=== PATIENT | female | born 1975 | race Caucasian/White ===

== ENCOUNTER 2018-03-17 14:26 | Observation (INO) ==
[2018-03-18] MEDS: Sod Chloride 0.9% Inj 1,000 ML IV.CONT SCH ×4 (01:00→23:59)
[2018-03-18] MEDS: Morphine Sulfate Inj 2 MG/ML Vial IV.PUSH PRN ×2 (01:18→20:22)
[2018-03-18 05:47] LABS: Baso # (Auto) 0.1 th/mm3 (0.0-0.2); Eos # (Auto) 0.3 th/mm3 (0.0-0.4); Eos % (Auto) 4.4 % (0.0-4.0); Hematocrit 36.6 % (35.0-46.0); Hemoglobin 11.9 gm/dL (11.6-15.3); Lymph # (Auto) 2.6 th/mm3 (1.0-4.8); Lymph % (Auto) 34.5 % (9.0-44.0); Mean Corpuscular HGB Conc 32.4 % (32.0-36.0); Mean Corpuscular Hemoglobin 27.8 pg (27.0-34.0); Mean Corpuscular Volume 85.8 fL (80.0-100.0); Mean Platelet Volume 9.7 fL (7.0-11.0); Mono # (Auto) 0.5 th/mm3 (0.0-0.9); Mono % (Auto) 6.4 % (0.0-8.0); Neut % (Auto) 53.7 % (16.0-70.0); Platelet Count 200 th/mm3 (150-450); Red Blood Count 4.27 mil/mm3 (4.00-5.30); Red Cell Distribution Width 13.1 % (11.6-17.2); White Blood Count 7.5 th/mm3 (4.0-11.0)
[2018-03-18 05:58] LABS: Chloride 107 meq/L (98-107); Potassium 3.8 meq/L (3.5-5.1); Sodium 139 meq/L (136-145)
[2018-03-18 06:01] LABS: Calcium 7.7 mg/dL (8.5-10.1)
[2018-03-18 06:02] LABS: Anion Gap 8 meq/L (5-15); Blood Urea Nitrogen 6 mg/dL (7-18); Carbon Dioxide 24.3 meq/L (21.0-32.0); Glucose,Random 81 mg/dL (74-106); Lipase 473 U/L (73-393)
[2018-03-18 06:05] LABS: Glomerular Filtration Rate Greater Than 89 mL/min (>89)
--- NOTE | 2018-03-18 08:50 | P.HP ---
History of Present Illness Primary Care Physician: No Primary Care Physician Chief Complaint: Abdominal pain History of Present Illness: 42-year-old female with known history of chronic abdominal discomfort with gastritis who presented to the hospital because acute onset abdominal pain. Patient indicates that she has had a chronic problem with bloating, abdominal pain, gastritis. She is been evaluated multiple times with primary medical doctor, sanitation worker cleaning machinery. States that her last endoscopy was 2-3 years ago and they did not find anything acutely abnormal at that time. Patient states that she is tried multiple different treatments to include different diets, avoiding certain foods. However she never get her pain and discomfort controlled. Patient states that she is in her normal state of health until approximately 1 AM yesterday morning when she woke up with acute abdominal pain on the right side that radiated to the right flank. She was nauseous but did not have any vomiting. Patient states that the pain did not improve. She did have a bowel movement yesterday morning without any improvement of her pain. Because the pain did not improve she went to the emergency department for evaluation. Patient had workup done with radiological studies of liver ultrasound, CT the abdomen which did not indicate any acute abnormality. Laboratory studies did indicate elevated lipase level. Patient was recommended to be observed in the hospital for further evaluation. At the time of seeing the patient her pain is much improved. Lipase level is almost returned to normal. Patient does appear to quite frustrated about her clinical condition and cannot find a reason for her symptoms. Patient denied any fever, chills, vomiting, diarrhea, constipation - Diagnosis (1) Serum lipase elevation (2) Abdominal pain Review of Systems All other systems reviewed negative except as stated in HPI Gastrointestinal: Reports abdominal pain, Reports nausea PMFSH - History History Provided By: Patient - Medical History Medical History: Medical History (Last Reviewed 03/18/18 @ 08:34 by KIMBERLY Tello) Asthma Gastritis - Surgical History Surgical History: Surgical History (Last Reviewed 03/18/18 @ 08:34 by KIMBERLY Tello) History of abdominoplasty History of breast augmentation - Family History Family History: Family History (Last Updated 03/18/18 @ 08:34 by KIMBERLY Tello) Father History of diabetes mellitus History of hypertension - Tobacco History Second Hand Smoke Exposure: No Smoking Status: Former smoker Number of Pack Years (if former smoker): 4 - Alcohol History How Often Do You Have a Drink Containing Alcohol: Monthly or less - Substance Use History Substance History: No History of Abuse Medications and Allergies Active Medications: Active Medications Sodium Chloride (Ns Inj) 1,000 mls @ 125 mls/hr IV.CONT .Q8H [facility] Last Admin: 03/18/18 08:01 Dose: Not Given Morphine Sulfate (Morphine Inj) 2 mg IV.PUSH Q3H PRN PRN Reason: ABDOMINAL PAIN Last Admin: 03/18/18 01:18 Dose: 2 mg Ondansetron HCl (Zofran Inj) 4 mg IV.PUSH Q6H PRN PRN Reason: NAUSEA OR VOMITING Last Admin: 03/18/18 01:24 Dose: 4 mg Allergies Allergy/AdvReac Type Severity Reaction Status Date / Time No Known Allergies Allergy Verified 03/17/18 14:44 Home Medications Medication Instructions Recorded Confirmed Type albuterol sulfate [Ventolin HFA] 2 puff INHALATION Q4-6H PRN 03/17/18 03/18/18 History Exam Vital signs: Vital Signs 03/18/18 00:00 03/18/18 08:25 Temperature 96.7 F L 97.7 F Pulse Rate 67 87 Respiratory Rate 20 20 Blood Pressure 122/64 111/60 Pulse Oximetry 99 95 Intake & Output 03/17/18 03/18/18 03/18/18 18:59 06:59 18:59 Intake Total 0 / 0 172 / 172 Balance 0 / 0 172 / 172 Weight 84.7 kg Intake: IV 172 / 172 NS Inj 1,000 ML @ 125 mls/hr IV 172 / 172 .CONT .Q8H [facility] Rx#:[id number] Oral 0 / 0 0 / 0 Other: # Voids 2 Weight On Admission 84.5 kg Narrative: GENERAL: Well-developed, well-nourished, in no acute distress. alert and orientated HEENT: Head is normocephalic without any lesions or masses noted. Facial features are symmetric. Eyes: Pupils equal round reactive to light. Extraocular muscles are intact. Conjunctivae were clear. Oropharyngeal: Pharynx without any erythema edema. Tongue is midline without deviation. Buccal mucosa is moist without any masses or lesions NECK: Supple without any masses. Trachea midline no deviation. No JVD, no bruits are appreciated CARDIAC: Regular rhythm, regular rate. S1/S2 are heard. No murmurs gallops or rubs. LUNGS: Clear to auscultation bilaterally. No wheeze, rhonchi or rales. No use of accessory muscles on inspiration or expiration. ABDOMEN: Soft, nontender. Nondistended. Bowel sounds heard in all 4 quadrants. No organomegaly or masses. Negative rebound, negative guarding EXTREMITIES: No edema, pulses are equal bilaterally. No cyanosis or clubbing NEUROLOGY: Mood and affect appear appropriate. Cranial nerves II through XII grossly intact. Muscle strength 5/5 in upper and lower extremities bilaterally. Deep tendon reflexes are 2+ in upper and lower extremities bilaterally. Results - Labs CBC & Chem 7: 03/18/18 04:30 03/18/18 04:30 Labs: Laboratory Results - last 24 hr 03/18/18 03/18/18 04:30 04:30 CBC w Diff Auto diff final WBC 7.5 RBC 4.27 Hgb 11.9 Hct 36.6 MCV 85.8 MCH 27.8 MCHC 32.4 RDW 13.1 Plt Count 200 MPV 9.7 Neut % (Auto) 53.7 Lymph % (Auto) 34.5 Ralls % (Auto) 6.4 Eos % (Auto) 4.4 H Baso % (Auto) 1.0 Neut # (Auto) 4.0 Lymph # (Auto) 2.6 Ralls # (Auto) 0.5 Eos # (Auto) 0.3 Baso # (Auto) 0.1 WBC Differential . Differential Comment . Sodium 139 Potassium 3.8 Chloride 107 Carbon Dioxide 24.3 Anion Gap 8 BUN 6 L Creatinine 0.71 Estimated GFR Greater than 89 Random Glucose 81 Calcium 7.7 L Lipase 473 H Caprini VTE Risk Assessment Caprini VTE Risk Assessment: No/Low Risk (score <= 1) Caprini Risk Assessment Model: Point Value = 1 Point Value = 2 Point Value = 3 Point Value = 5 Age 41-60 Minor surgery BMI > 25 kg/m2 Swollen legs Varicose veins or History of unexplained or recurrent spontaneous Oral contraceptives or hormone replacement Sepsis (< 1 month) Serious lung disease, including pneumonia (< 1 month) Abnormal pulmonary function Acute myocardial infarction Congestive heart failure (< 1 month) History of inflammatory bowel disease Medical patient at bed rest Age 61-74 Arthroscopic surgery Major open surgery (> 45 min) Laparoscopic surgery (> 45 min) Malignancy Confined to bed (> 72 hours) Immobilizing plaster cast Central venous access Age >= 75 History of VTE Family history of VTE Factor V Leiden Prothrombin [id number] Lupus anticoagulant Anticardiolipin antibodies Elevated serum homocysteine Heparin-induced thrombocytopenia Other congenital or acquired thrombophilia Stroke (< 1 month) Elective arthroplasty Hip, pelvis, or leg fracture Acute spinal cord injury (< 1 month) Prophylaxis Regimen: Total Risk Factor Score Risk Level Prophylaxis Regimen 0-1 Low Early ambulation 2 Moderate Order ONE of the following: *Sequential Compression Device (SCD) *Heparin 5000 units SQ BID 3-4 Higher Order ONE of the following medications: *Heparin 5000 units SQ TID *Enoxaparin/Lovenox 40 mg SQ daily (WT < 150 kg, CrCl > 30 mL/min) *Enoxaparin/Lovenox 30 mg SQ daily (WT < 150 kg, CrCl > 10-29 mL/min) *Enoxaparin/Lovenox 30 mg SQ BID (WT < 150 kg, CrCl > 30 mL/min) AND/OR *Sequential Compression Device (SCD) 5 or more Highest Order ONE of the following medications: *Heparin 5000 units SQ TID (Preferred with Epidurals) *Enoxaparin/Lovenox 40 mg SQ daily (WT < 150 kg, CrCl > 30 mL/min) *Enoxaparin/Lovenox 30 mg SQ daily (WT < 150 kg, CrCl > 10-29 mL/min) *Enoxaparin/Lovenox 30 mg SQ BID (WT < 150 kg, CrCl > 30 mL/min) AND *Sequential Compression Device (SCD) Assessment and Plan - Assessment (1) Serum lipase elevation Code(s): R74.8 - Abnormal levels of other serum enzymes Status: Acute (2) Abdominal pain Code(s): R10.9 - Unspecified abdominal pain Status: Acute - Plan Abdominal pain with elevated lipase; possible early pancreatitis -CT scan and liver ultrasound did not indicate any acute abnormality, no pancreatic abnormality -Lipase levels are already returning to normal -Start clear liquid diet -Continue IV fluids, pain control DVT prevention -Sequential compression devices Discussed Condition With: Patient Discharge Planning: Discharge home in stable condition Activity: Ad crissy. Diet: Regular diet Medication per medication reconciliation Follow-up with primary medical doctor in 1 week
[2018-03-19] MEDS: Sod Chloride 0.9% Inj 1,000 ML IV.CONT SCH ×2 (07:10→15:54)
[2018-03-19] MEDS: Morphine Sulfate Inj 2 MG/ML Vial IV.PUSH PRN (08:23)
--- NOTE | 2018-03-19 09:04 | P.PN ---
Subjective Interval history: 42-year-old female who was seen and examined today for follow-up of pancreatitis. Patient continues have chronic abdominal pain. She has not been able to tolerate any diet since last night. She is requiring pain medication at this time. Her lipase level has returned to normal, unlikely that it is related to pancreatitis. Patient will need further evaluation and management. Vital signs are stable, patient remains afebrile Physical Exam Vital signs: Vital Signs 03/18/18 12:00 03/18/18 16:08 03/18/18 20:00 Temperature 98.4 F 98.9 F 98.7 F Pulse Rate 90 75 72 Respiratory Rate 19 19 20 Blood Pressure 128/67 143/67 H 112/64 Pulse Oximetry 97 97 99 03/19/18 00:00 03/19/18 08:43 Temperature 97.3 F L 98.2 F Pulse Rate 65 81 Respiratory Rate 16 14 Blood Pressure 106/66 118/69 Pulse Oximetry 98 98 Intake & Output 03/18/18 03/19/18 03/19/18 18:59 06:59 18:59 Intake Total 1480 / 1480 1200 / 1200 1000 / 1000 Output Total 1301 / 1301 Balance 179 / 179 1200 / 1200 1000 / 1000 Intake: IV 1000 / 1000 1000 / 1000 1000 / 1000 NS Inj 1,000 ML @ 125 mls/hr IV 1000 / 1000 1000 / 1000 1000 / 1000 .CONT .Q8H [facility] Rx#:[id number] Oral 480 / 480 200 / 200 Output: Urine 1300 / 1300 Stool Other: # Voids 4 Date of Last Bowel Movement 03/18/18 03/18/18 Narrative: GENERAL: Well-developed, well-nourished, in no acute distress. alert and orientated HEENT: Head is normocephalic without any lesions or masses noted. Facial features are symmetric. Eyes: Extraocular muscles are intact. Conjunctivae were clear. NECK: Supple without any masses. Trachea midline no deviation. No JVD, CARDIAC: Regular rhythm, regular rate. S1/S2 are heard. No murmurs gallops or rubs. LUNGS: Clear to auscultation bilaterally. No wheeze, rhonchi or rales. No use of accessory muscles on inspiration or expiration. ABDOMEN: Soft, right upper quadrant tenderness radiating into the right flank. Nondistended. Bowel sounds heard in all 4 quadrants. No organomegaly or masses. Negative rebound, negative guarding EXTREMITIES: No edema, pulses are equal bilaterally. No cyanosis or clubbing NEUROLOGY: Mood and affect appear appropriate. Cranial nerves II through XII grossly intact. Moving all extremities, speech is clear Results - Labs CBC & Chem 7: 03/18/18 04:30 03/18/18 04:30 Laboratory Results - last 24 hr 03/18/18 03/18/18 03/19/18 04:30 14:42 06:12 Triglycerides 49 Lipase 731 H 226 Assessment and Plan - Assessment (1) Serum lipase elevation Code(s): R74.8 - Abnormal levels of other serum enzymes Status: Acute (2) Abdominal pain Code(s): R10.9 - Unspecified abdominal pain Status: Acute - Plan Abdominal pain with elevated lipase -Patient indicate that the pain is actually worse, she has not been able tolerate liquid diet, continues to be nauseous without any vomiting. Patient requiring IV pain medication for control -CT scan and liver ultrasound did not indicate any acute abnormality, no pancreatic abnormality -Obtain CT of the abdomen and pelvis with IV contrast, will need to evaluate for other etiology that could be causing the patient's abdominal pain. Need to rule out mesenteric ischemia, -lipase levels have returned to normal -Continue IV fluids, pain control -Consult GI for further recommendations, likely require endoscopy for further evaluation -We will continue clear liquid diet at this time and make n.p.o. after midnight in preparation for EGD DVT prevention -Sequential compression devices
[2018-03-19] MEDS ORDERED: Diatrizoate Meglum/Diatrizoate Sod Liq 9 ML UDC PO ONE (10:03)
--- NOTE | 2018-03-19 13:52 | CT ---
EXAM DATE: 03/19/2018 1:41 PM EDT AGE/SEX: 42 years / Female INDICATIONS: Right abdominal pain. CLINICAL DATA: This is the patient's initial encounter. Patient reports that signs and symptoms have been present for 4 - 6 days and indicates a pain score of 2/10. MEDICAL/SURGICAL HISTORY: Pancreatitis. Asthma. Gastritis. . Abdominoplasty. ORAL CONTRAST: Prescribed oral contrast ingested. RADIATION DOSE: 17.19 CTDI (mGy) COMPARISON: [facility], CT ABDOMEN & PELVIS W/O CONTRAST, 03/17/2018. . TECHNIQUE: Multiple contiguous axial images were obtained through the abdomen and pelvis following b olus infusion of 95 ml Omnipaque 350 (iohexol) nonionic water-soluble contrast as a single exam dos e. Prescribed oral contrast ingested. Using automated exposure control and adjustment of the mA and/ or kV according to patient size, radiation dose was kept as low as reasonably achievable to obtain op timal diagnostic quality images. DICOM format image data is available electronically for review and comparison. FINDINGS: LOWER LUNGS: The visualized lower lungs are clear. LIVER: The liver has a homogeneous density without space-occupying lesion. There is no dilation of t he biliary tree. SPLEEN: Homogeneous density without enlargement. PANCREAS: Unremarkable without mass or calcification. KIDNEYS: Kidneys demonstrate symmetrical enhancement and are symmetrical in size without evidence fo r radiopaque renal calculi or hydronephrosis. ADRENAL GLANDS: Unremarkable. AORTA: Renée-aneurysmal. BOWEL/MESENTERY: Appendix is visualized. Appendix is normal in size. However, there is subtle periap pendiceal mesenteric stranding. There is a single 5 mm periappendiceal node. Bowel otherwise appears unremarkable. The cecum and sigmoid colon have a normal configuration. ABDOMINAL WALL: Intact. RETROPERITONEUM: No evidence of adenopathy in the retrocrural, para-aortic, or deep pelvic regions. BLADDER: Contours are smooth. REPRODUCTIVE: Redemonstration of a 2.6 cm left ovarian cyst. Very trace abnormal pelvic free fluid. BONY STRUCTURES: Unremarkable. CONCLUSION: 1. Although the appendix is normal in size, there is subtle periappendiceal mesenteric stranding new since CT exam of 03/17/2018. Cannot exclude very acute developing appendicitis in the appropriate cli nical setting. 2. Stable 2.6 cm left ovarian cyst. Electronically signed by: Timoteo Soto MD 03/19/2018 1:50 PM EDT
[2018-03-19 14:09] LABS: Bilirubin,Urine Negative (Negative); Clarity,Urine Clear (Clear); Color,Urine Straw (Yellw/Straw); Glucose,Urine (UA) Negative (Negative); Leukocyte Esterase,Urine Trace (Negative); Nitrite,Urine Negative (Negative); Specific Gravity,Urine Less/Equal 1.005 (1.002-1.035)
[2018-03-19 14:16] LABS: Squamous Epithelial Cell,Urine 0-5 /hpf (0-5); WBC,Urine 0-5 /hpf (0-5)
[2018-03-19] MEDS: Ampicillin/Sulbactam Inj 3 GM in Sodium Chloride 0.9% Inj 100 ML IV.SIG SCH ×2 (15:48→22:30)
[2018-03-19 20:15] VITALS: RESP 16
--- NOTE | 2018-03-19 20:24 | P.CONGS ---
[facility] Gen Surgery Consult Note Consult date: 03/19/18 Reason for consult: abdominal pain Narrative: Patient was recently admitted to the hospital after she went to the [facility] to ER and was found to have an elevated lipase consistent with pancreatitis. She again got admitted to the [facility] a repeat CT scan showed questionable early appendicitis although the appendix looked normal Surgery is asked to evaluate the patient and reviewed the radiologic imaging The patient states her pain started in the right upper quadrant pain extending into the back after eating a philistine state the pain came on suddenly made her nauseous. She feels better now is very hungry. Review of Systems Cardiovascular: Denies chest pain, Denies chest pain at rest, Denies chest pain with activity, Denies excessive sweating, Denies fainting, Denies fast heart rate, Denies foot swelling, Denies generalized swelling, Denies irregular heart rhythm, Denies leg pain with activity, Denies leg sores, Denies leg swelling, Denies lightheadedness, Denies radiating jaw, neck or arm pain, Denies rapid, pounding, or irregular heartbeat, Denies shortness of breath, Denies shortness of breath with activity, Denies shortness of breath when lying down, Denies shortness of breath causing sudden awakening, Denies slow heart rate, Denies other Respiratory: Denies change in phlegm color, Denies chest congestion, Denies cough, Denies coughing up blood, Denies excessive phlegm production, Denies pain on inspiration, Denies pain with cough, Denies shortness of breath, Denies shortness of breath with activity, Denies snoring, Denies stridor, Denies wheezing, Denies other Gastrointestinal: Reports abdominal pain, Reports cramping, Reports heartburn, Reports nausea, Denies belching, Denies black, tarry stools, Denies bloating, Denies bright, red blood in stools, Denies change in bowel habits, Denies constant urge to pass stool, Denies change in stools, Denies coffee ground vomit , Denies constipation, Denies difficulty swallowing, Denies excessive passing of gas, Denies feeling full early, Denies incontinent of stools, Denies loose stools, Denies pain with swallowing, Denies vomiting, Denies vomiting blood, Denies other Genitourinary: Denies abnormal periods, Denies abnormal vaginal bleeding, Denies absent period, Denies bleeding between periods, Denies blood in urine, Denies difficulty starting urination, Denies difficulty urinating, Denies dribbling after urination, Denies frequent nighttime urination, Denies genital itching, Denies genital lesions, Denies heavy periods, Denies hot flashes, Denies light periods, Denies nipple discharge, Denies painful intercourse, Denies painful periods, Denies painful urination, Denies pelvic pain, Denies prolapse symptoms, Denies sexual problems, Denies side pain, Denies urinary incontinence, Denies urinary urgency, Denies vaginal discharge, Denies vaginal dryness, Denies vaginal odor, Denies vaginal itching, Denies other Musculoskeletal: Denies abnormal walking, Denies back pain, Denies body aches, Denies decreased muscle mass, Denies deformity, Denies joint pain, Denies joint swelling, Denies limited joint movement, Denies loss of height, Denies muscle cramps, Denies muscle weakness, Denies neck pain, Denies numbness, Denies radiating pain into limb, Denies stiffness, Denies tingling, Denies other PMFSH - History History Provided By: Patient - Medical History Medical History: Medical History (Last Reviewed 03/19/18 @ 20:19 by Trevon Angelo MD) Asthma Gastritis - Surgical History Surgical History: Surgical History (Last Reviewed 03/19/18 @ 20:19 by Trevon Angelo MD) History of abdominoplasty History of breast augmentation - Family History Family History: Family History (Last Reviewed 03/19/18 @ 20:19 by Trevon Angelo MD) Father History of diabetes mellitus History of hypertension - Tobacco History Second Hand Smoke Exposure: No Smoking Status: Former smoker Number of Pack Years (if former smoker): 4 - Alcohol History How Often Do You Have a Drink Containing Alcohol: Monthly or less - Substance Use History Substance History: No History of Abuse Medications and Allergies Active Medications: Active Medications Sodium Chloride (Ns Inj) 1,000 mls @ 125 mls/hr IV.CONT .Q8H [facility] Last Admin: 03/19/18 15:54 Dose: 100 mls/hr Ampicillin Sodium/Sulbactam (Sodium 3 gm/ Sodium Chloride) 100 mls @ 200 mls/ hr IV.SIG Q6H [facility] Last Infusion: 03/19/18 16:35 Dose: Infused Morphine Sulfate (Morphine Inj) 2 mg IV.PUSH Q3H PRN PRN Reason: ABDOMINAL PAIN Last Admin: 03/19/18 08:23 Dose: 2 mg Ondansetron HCl (Zofran Inj) 4 mg IV.PUSH Q6H PRN PRN Reason: NAUSEA OR VOMITING Last Admin: 03/19/18 08:28 Dose: 4 mg Allergies Allergy/AdvReac Type Severity Reaction Status Date / Time No Known Allergies Allergy Verified 03/17/18 14:44 Home Medications Medication Instructions Recorded Confirmed Type albuterol sulfate [Ventolin HFA] 2 puff INHALATION Q4-6H PRN 03/17/18 03/18/18 History Exam Vital signs: Vital Signs 03/19/18 00:00 03/19/18 08:43 03/19/18 14:02 Temperature 97.3 F L 98.2 F 97.0 F L Pulse Rate 65 81 70 Respiratory Rate 16 14 16 Blood Pressure 106/66 118/69 124/70 Pulse Oximetry 98 98 98 03/19/18 18:02 03/19/18 20:00 Temperature 97.7 F 97.0 F L Pulse Rate 78 73 Respiratory Rate 18 16 Blood Pressure 135/89 128/70 Pulse Oximetry 99 95 Intake & Output 03/19/18 03/19/18 03/20/18 06:59 18:59 06:59 Intake Total 1200 / 1200 2100 / 2100 Balance 1200 / 1200 2100 / 2100 Intake: IV 1000 / 1000 2100 / 2100 NS Inj 1,000 ML @ 125 mls/hr IV 1000 / 1000 2000 / 1999 .CONT .Q8H [facility] Rx#:[id number] Unasyn Inj 3 GM In NS Inj 100 100 / 100 ML @ 200 mls/hr IV.SIG Q6H [facility] Rx#:[id number] Oral 200 / 200 Other: # Voids 4 Date of Last Bowel Movement 03/18/18 03/19/18 # Bowel Movements 1 - Constitutional no acute distress - Routine HEENT Exam Head: Present: normocephalic, atraumatic Eye: Present: EOMI ENT: Present: mucous membranes moist - Routine Neck Exam Present: supple, full ROM - Routine Respiratory Exam Present: CTA bilaterally - Routine Cardiovascular Exam Present: RRR - Routine Abdominal Exam Present: soft, surgical scars (Abdominoplasty) Comments: Mild discomfort right upper quadrant with deep palpation No tenderness in the right lower quadrant or left lower quadrant - Routine Extremities Exam Present: full ROM (Walking in the room) - Routine Skin Exam Present: intact - Routine Neurological Exam Present: alert, oriented X3 Results - Labs 03/18/18 04:30 03/18/18 04:30 Abnormal lab results 03/19/18 Range/Units 13:30 Ur Leukocyte Esterase Trace H (Negative) All other labs normal. - Imaging CT scan - abdomen: report reviewed, image reviewed CT scan - pelvis: report reviewed, image reviewed US - abdomen: report reviewed, image reviewed Assessment and Plan - Assessment (1) Right upper quadrant pain Code(s): R10.11 - Right upper quadrant pain Status: Acute (2) Fatty food intolerance Code(s): K90.49 - Malabsorption due to intolerance, not elsewhere classified Status: Acute (3) Serum lipase elevation Code(s): R74.8 - Abnormal levels of other serum enzymes Status: Acute - Plan 42-year-old female who had a sudden onset of right upper quadrant pain nausea she has a history of gastritis. She had an elevated lipase ultrasound was done did not show any stones. However her clinical history with having a cheese steak and then having this pain is consistent with biliary colic I suspect she may passed a small stone giving her pancreatitis that has somewhat resolved. The clinical picture is not consistent with appendicitis and does not correlate to the radiologic interpretation of the appendix. She does have a cyst on the left ovary she may have one on the right. At this time I would advance her diet. Obtain a HIDA scan Anticipate discharge tomorrow follow-up in my office 7 day course of antibiotic therapy I will discuss with her on an outpatient basis about possible cholecystectomy She may need a repeat EGD to evaluate recurrent gastritis NOTE FOR SURGICAL ATTENDING, DR. TREVON ANGELO I attest that I had a [id number] encounter with the patient on the same day, and personally performed and documented my assessment and findings in the medical record. The following services were provided during this hospital visit: Chart data review, vital sign assessments/reviewing monitor data Review of consultations notes if present. Medication orders/review and/or management Ordering and/or reviewing lab tests Ordering and/or interpreting/reviewing x-rays and/or diagnostic studies Care of the patient and discussion of the patient with the care team Documentation time To help prompt me to consider important information that might be impacting today's encounter and assessment, Information from prior notes written by myself or my colleagues may have been "brought forward/copy and pasted" into today's note.
[2018-03-20] MEDS: Sod Chloride 0.9% Inj 1,000 ML IV.CONT SCH ×2 (00:58→08:54)
[2018-03-20] MEDS: Ampicillin/Sulbactam Inj 3 GM in Sodium Chloride 0.9% Inj 100 ML IV.SIG SCH ×2 (06:30→12:34)
[2018-03-20 09:05] VITALS: O2SAT 98
[2018-03-20] MEDS ORDERED: Sincalide Inj 5 MCG Vial IV.PUSH ONE (11:54)
--- NOTE | 2018-03-20 12:51 | NM ---
EXAM DATE: 03/20/2018 12:43 PM EDT AGE/SEX: 42 years / Female INDICATIONS: Right upper quadrant pain for one day. CLINICAL DATA: This is the patient's initial encounter. Patient reports that signs and symptoms have been present for 1 day and indicates a pain score of 8/10. MEDICAL/SURGICAL HISTORY: . Asthma. Breast augmentation. COMPARISON: No prior exams available for comparison. No external comparison. DOSE: 4.1 mCi Tc-99m mebrofenin i.v. Medication: 1.68 mcg Cholecystokinin IV No symptomatic response Cholecystokinin was administered by slow infusion over 8 minutes beginning at 60 min. min utes. TECHNIQUE: Following the intravenous administration of radiotracer, dynamic sequential images were pe rformed with continuous acquisition. Time-activity curves were generated. FINDINGS: Hepatic Kinetics: There is prompt uptake of radiotracer in the liver. No focal defects are seen. Ther e is normal rate of washout from the hepatic parenchyma. Biliary Clearance: Activity is first seen in the extrahepatic biliary system at 10 minutes. There is normal excretion into the small bowel. Gallbladder: Activity is first seen in the gallbladder at 15 minutes. Post-CCK: After CCK administration, there is no significant emptying of the gallbladder. Common bile duct kinetics are normal and there is no evidence of biliary obstruction. No symptomatic response af ter cholecystokinin infusion. Biliary-Enteric Reflux: There is minimal activity seen replacing in the stomach during the examinatio n. CONCLUSION: 1. No sign of obstruction. 2. No significant response of the gallbladder to CCK protrusion. Electronically signed by: Colton Preston MD 03/20/2018 12:49 PM EDT
--- NOTE | 2018-03-20 14:04 | P.DS ---
Date of admission: 03/17/18 22:55 Primary care physician: No Primary Care Physician Attending physician on discharge: Joel Greene Anticipated date of discharge: 03/20/18 Brief History from admission: 42-year-old female with known history of chronic abdominal discomfort with gastritis who presented to the hospital because acute onset abdominal pain. Patient indicates that she has had a chronic problem with bloating, abdominal pain, gastritis. She is been evaluated multiple times with primary medical doctor, pepper picker. States that her last endoscopy was 2-3 years ago and they did not find anything acutely abnormal at that time. Patient states that she is tried multiple different treatments to include different diets, avoiding certain foods. However she never get her pain and discomfort controlled. Patient states that she is in her normal state of health until approximately 1 AM yesterday morning when she woke up with acute abdominal pain on the right side that radiated to the right flank. She was nauseous but did not have any vomiting. Patient states that the pain did not improve. She did have a bowel movement yesterday morning without any improvement of her pain. Because the pain did not improve she went to the emergency department for evaluation. Patient had workup done with radiological studies of liver ultrasound, CT the abdomen which did not indicate any acute abnormality. Laboratory studies did indicate elevated lipase level. Patient was recommended to be observed in the hospital for further evaluation. At the time of seeing the patient her pain is much improved. Lipase level is almost returned to normal. Patient does appear to quite frustrated about her clinical condition and cannot find a reason for her symptoms. Patient denied any fever, chills, vomiting, diarrhea, constipation DS: Diagnosis - Discharge Diagnosis (1) Serum lipase elevation Status: Acute (2) Abdominal pain Status: Acute DS: Medications - Discharge Medications Prescriptions: pantoprazole [Protonix] 40 mg PO DAILY #30 tab DS: Summary Hospital Course: 42-year-old female who originally presented the hospital because of acute onset abdominal pain. Patient was found to have an elevated lipase level was admitted the hospital for acute pancreatitis. CT scan was done at that time which did not indicate any pancreatic abnormality or liver abnormality. Ultrasound was performed which did not indicate any acute abnormality. Patient was admitted to the hospital with IV fluids, pain control, n.p.o. Patient tolerated quite well within the first 24 hours she is doing good. However lipase level did come down however did not resolve completely. Patient was continued on treatment plan, started with clear liquid diet. Throughout the next night she started developing worsening pain, requiring pain medication. Upon evaluating patient morning she was not tolerating any diet. Requiring pain medicine. Follow-up CT scan was performed which radiologist now indicating there may be some development of some early pancreatitis. [employer] and general surgeon was consulted. General surgery evaluated patient does not feel the patient is having an acute appendicitis. He indicates that patient may have passed a gallstone and requested HIDA scan to be performed. HIDA scan was done which was completely normal. Case was discussed with them who indicate that the patient can follow-up with them in outpatient setting after they are evaluated by GI. Patient has not seen gastroenterology while hospitalized this time. Family member and patient would much rather see a pepper picker in their area of residence. They do not want to wait around for pepper picker to see them. They do want to go home. A follow-up with her primary call doctor and get a pepper picker referral. Patient clinically stable this time. She is tolerating food without any adverse symptoms. We will plan discharge accordingly. - Time Spent with Patient Total time spent providing and/or coordinating discharge services: Greater than 30 minutes - Quality: VTE Deep Vein Thrombosis/Pulmonary Embolism Present on Admission: No Exam Vital signs: Vital Signs 03/19/18 14:02 03/19/18 18:02 03/19/18 20:00 Temperature 97.0 F L 97.7 F 97.0 F L Pulse Rate 70 78 73 Respiratory Rate 16 18 16 Blood Pressure 124/70 135/89 128/70 Pulse Oximetry 98 99 95 03/20/18 00:00 03/20/18 08:00 03/20/18 12:41 Temperature 98.3 F 97.5 F L 98 F Pulse Rate 72 83 70 Respiratory Rate 16 16 16 Blood Pressure 110/66 110/69 121/85 Pulse Oximetry 99 98 Intake & Output 03/19/18 03/20/18 03/20/18 18:59 06:59 18:59 Intake Total 2099 / 2099 1100 / 1100 1200 / 1200 Balance 2100 / 2100 1100 / 1100 1200 / 1200 Weight 85.9 kg Intake: IV 2099 / 2100 1100 / 1100 1200 / 1200 NS Inj 1,000 ML @ 125 mls/hr IV 2000 / 2000 1000 / 1000 1000 / 1000 .CONT .Q8H [facility]ER[facility] Rx#:[id number] Unasyn Inj 3 GM In NS Inj 100 100 / 100 100 / 100 200 / 200 ML @ 200 mls/hr IV.SIG Q6H BRODERICK Rx#:[id number] Other: # Voids 1 Date of Last Bowel Movement 03/19/18 # Bowel Movements 1 Narrative: GENERAL: Well-developed, well-nourished, in no acute distress. alert and orientated HEENT: Head is normocephalic without any lesions or masses noted. Facial features are symmetric. Eyes: Extraocular muscles are intact. Conjunctivae were clear. NECK: Supple without any masses. Trachea midline no deviation. No JVD, CARDIAC: Regular rhythm, regular rate. S1/S2 are heard. No murmurs gallops or rubs. LUNGS: Clear to auscultation bilaterally. No wheeze, rhonchi or rales. No use of accessory muscles on inspiration or expiration. ABDOMEN: Soft, nontender. Nondistended. Bowel sounds heard in all 4 quadrants. No organomegaly or masses. Negative rebound, negative guarding EXTREMITIES: No edema, pulses are equal bilaterally. No cyanosis or clubbing NEUROLOGY: Mood and affect appear appropriate. Cranial nerves II through XII grossly intact. Moving all extremities Results Procedures completed during hospitalization: None Labs on day of discharge: Labs from last 24 hours 03/19/18 13:30 Ur Collection Type Clean catch Urine Color Straw Urine Clarity Clear Urine pH 7.0 Ur Specific [place] Less/equal 1.005 Urine Protein Negative Urine Glucose (UA) Negative Urine Ketones Negative Urine Occult Blood Negative Urine Nitrate Negative Urine Bilirubin Negative Urine Urobilinogen 1.0 Ur Leukocyte Esterase Trace H Urine WBC 0-5 Ur Squamous Epith Cells 0-5 Micro UA Comment Culture not ind Urine Culture Comments Culture not ind - Impressions ITS Impressions Abdomen/Pelvis CT 03/19/18 08:56 CONCLUSION: 1. Although the appendix is normal in size, there is subtle periappendiceal mesenteric stranding new since CT exam of 03/17/2018. Cannot exclude very acute developing appendicitis in the appropriate clinical setting. 2. Stable 2.6 cm left ovarian cyst. Bile Acid Absorption NM 03/20/18 06:00 CONCLUSION: 1. No sign of obstruction. 2. No significant response of the gallbladder to CCK protrusion. Discharge Plan - Discharge Disposition Patient Disposition: 01 Discharge Home - Discharge Condition Condition: Stable - Discharge Order Discharge Orders: Discharge Order (Routine); Ordered 03/20/18 Ordered By: Mitchel French - Discharge Details Anticipated Discharge Date: 03/20/18 - Physicians Team Primary Care Provider: Primary Care Ayana Guaman Attending Provider: Joel Greene Other Providers: Alexis Neumann MD ; Francisco Chen MD ; Surgeons,[facility] - Rxs /Orders / Referrals /Forms Prescriptions: New pantoprazole [Protonix] 40 mg Tablet,Delayed Release (Dr/Ec) 40 mg PO DAILY Qty: 30 RF: 0 Continue albuterol sulfate [Ventolin HFA] 90 mcg/actuation Hfa Aerosol Inhaler 2 puff INHALATION Q4-6H PRN (Reason: Shortness Of Breath) Referrals: Primary Care Ayana Guaman [Primary Care Provider] - See Instructions - Discharge Instructions Patient Printed Instructions: JOSEP Boyle (GEN) - Post Discharge Care Plan Care Plan Goals: Your Health Problems: Goals to Promote Your Health: * To prevent worsening of your condition * To maintain your health at the optimal level Directions to Meet Your Goals: * Take your medications as prescribed * Follow your dietary instruction * Follow activity as directed * Keep your appointments as scheduled * Take your immunizations and boosters as scheduled * If your symptoms worsen call your PCP * If no PCP go to Urgent Care or Emergency Room Smoking is dangerous to your health. Avoid second hand smoke. You may reach the 24-hour crisis hotline for domestic abuse at .
[2018-03-24 18:04] VITALS: BP 121/85; PULSE 70; TEMP 98
== END 2018-03-20 14:57 | disposition home or self-care (01) ==
LOC: PHEDDLT 22:54 → PH3 22:54 → INTOOBSV 22:55
PROVIDERS: ADMIT Family Medicine; ATTEND Family Medicine